=== PATIENT | female | born 1985 | race Hispanic/Latino ===

== ENCOUNTER 2017-07-14 00:17 | Inpatient (IN) | payer MEDICAID, OTHER ==
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
--- NOTE | 2017-07-14 01:46 | PCM.BM ---
<Des Davila - Last Filed: 07/14/17 01:41> Treatment Plan Problems - Problems identified on initial assessmt Depression Date Initiated: 07/14/17 Time Initiated: :30 Assessment reference: NA Status: Active Suicidal Ideation Date Initiated: 07/14/17 Time Initiated: :30 Assessment reference: NA Status: Active Alcohol Abuse Date Initiated: 07/14/17 Time Initiated: :30 Assessment reference: NA Status: Active Treatment assets and liabiliti Patient Assests: adapts well, cooperative, self-reliant, ADL independent, negotiates basic needs Patient Liabilities: live alone, physical pain, financial problems, poor support system, substance abuse - Milieu Protocol Maintain good personal hygiene: daily Encourage regular showers, daily Remind patient to perform daily oral care, daily Assist patient to perform ADL's Maintain personal safety: every shift Educate patient to report safety concerns to staff, every shift Monitor environment for contraband/sharps Medication safety: Monitor for expected outcome, potential side effects: every shift, Assess barriers to learning: every shift, Assess readiness for medication education: every shift <Kaye Lockwood - Last Filed: 07/15/17 10:58> - Diagnosis (1) Major depressive disorder, severe Status: Acute Interventions: 07/15/17 10:58 * Assess/adjust medications daily and /or as needed * See patient on an individual basis 7x/week to assess symptoms of depression * Monitor for side effects & effectiveness of medications * (2) Alcohol use disorder, severe, dependence Status: Acute Interventions: 07/15/17 10:58 * Assess 7x/week regarding severity of withdrawal * Educate regarding risks, benefits, side effects and alternatives of medications * Use Motivational Interviewing for abstinence * Use CBT for relapse prevention * Medication management for withdrawal symptoms * Encourage medication assisted treatment * <Birgit Fowler - Last Filed: 07/15/17 10:59> Family Contact Family involvement: Family/SO is involved Family contact: Patient declines to allow family contact at present - Goals for Treatment Patient goals for treatment: "I want to go to rehab." Discharge/Continuing Care - Education Needs Education Needs: Patient Medication, Patient Coping Skills, Patient Placement options, Patient Community resources - Discharge Discharge Criteria: Tolerates medication w/o severe side effects, No longer exhibiting s/s of withdrawal Discharge to:: Substance Abuse Rehab - Treatment Team Participation Discussed with Family/SO: No Was Patient/Family/SO present at Treatment Team Meeting: Yes
[2017-07-14] MEDS: Multiple Vitamins Tab PO SCH (09:49)
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
[2017-07-15] MEDS: Multiple Vitamins Tab PO SCH (09:47)
--- NOTE | 2017-07-15 10:09 | PCM.PYCHPN ---
Psychiatric Progress Note - Psychiatric Progress Note Patient seen today, length of contact: 16 min Patient Chief Complaint: I'm still feeling depressed Problems Identified/Issues Discussed: Patient seen and evaluated, chart reviewed and discussed with the nurse. Patient still reports depressed mood and feelings of hopelessness and helplessness. She remained isolated, confined and withdrawn. Patient still reports some withdrawal symptoms from drinking including nausea, headaches, and sweating. she denies any manic or psychotic symptoms. Patient is compliant with medications and denies any side effects. Symptoms are improving but need more time to stabilize. Support and psychoeducation given. Medication Change: Yes (Librium taper[employer] Zoloft) Medical Record Reviewed: Yes Mental Status Examination - Cognitive Function Orientation: Person, Place, Situation, Time Memory: Intact Attention: WNL Concentration: Poor Association: WNL Fund of Knowledge: Poor - Mood Mood: Depressed, Anxious - Affect Affect: Constricted, Depressed - Speech Speech: Soft - Formal Thought Process Formal Thought Process: No Impairment - Suicidal Ideation Suicidal Ideation: No - Homicidal Ideation Homicidal Ideation: No Goal/Treatment Plan - Goal/Treatment Plan Need for Continued Stay: Severe depression anxiety, Severe functional impairment Progress Toward Problem(s) and Goals/Treatment Plan: Major depressive disorder, recurrent, severe Alcohol use disorder- severe Alcohol withdrawal Sedative hypnotic anxiolytic use disorder- moderate Librium megha started Keppra 250mg PO BID Zoloft 100mg PO daily Vitamins Attend groups and activities Individual therapy Psychoeducation and support Encourage compliance with meds and after care Refer to outpatient program Teach healthy lifestyle methods, i.e. diet, exercise, meditation - Smoking Cessation Smoking Cessation Initiated: No
[2017-07-15] MEDS ORDERED: Pneumococcal 23-Valent Vaccine IM ONE (10:20)
[2017-07-15] MEDS ORDERED: Influenza Vaccine 60 mcg/0.5 mL SYR (4YR UP) IM ONE (10:30)
[2017-07-16] MEDS: Multiple Vitamins Tab PO SCH (09:33)
--- NOTE | 2017-07-16 18:57 | PCM.PYCHPN ---
Psychiatric Progress Note - Psychiatric Progress Note Patient seen today, length of contact: 15 minutes Patient Chief Complaint: I still feel depressed and anxious. I need my Adderall. Problems Identified/Issues Discussed: Patient seen, chart reviewed, case discussed with the staff. Issues related to illness and treatment were discussed with the patient. Reported compliant with treatment with no adverse affects. Reported feeling little better, less withdrawal symptoms but still feeling depression and anxiety. Patient reported taking Adderall 20 mg daily for ADHD, requesting to start. Aftercare discussed with the patient. Wants to go to a detention rehabilitation. At the time of evaluation, patient was awake alert oriented 3, had no delusions , no auditory or visual hallucinations, no suicidal ideations or homicidal ideations. Medical Problems: Seizure disorder Diagnostic Results: Reviewed DSM 5 Symptoms Update: Some improvement with treatment Medication Change: Yes (Started Ritalin 10 mg daily) Medical Record Reviewed: Yes Mental Status Examination - Cognitive Function Orientation: Person, Place, Situation, Time Memory: Intact Attention: WNL Concentration: WNL Association: WNL Fund of Knowledge: [facility] Decription of patient's judgement and insights: Fair - Mood Mood: Anxious - Affect Affect: Other (Appropriate) - Speech Speech: Soft - Formal Thought Process Formal Thought Process: No Impairment - Suicidal Ideation Suicidal Ideation: No - Homicidal Ideation Homicidal Ideation: No Goal/Treatment Plan - Goal/Treatment Plan Need for Continued Stay: Remain at risks for inpatient hospitalization, Discharge may exacerbated symptoms, Severe functional impairment Progress Toward Problem(s) and Goals/Treatment Plan: Patient education Supportive therapy Will start Ritalin 10 mg daily for ADHD. Hospital does not carry Adderall and patient does not has follow-up on medications. Patient wants to go to rehabilitation after discharge from the hospital. Estimated Date of D/C: 07/19/17 - Smoking Cessation Smoking Cessation Initiated: No
[2017-07-17] MEDS: Multiple Vitamins Tab PO SCH (09:25)
--- NOTE | 2017-07-17 13:36 | PCM.PYCHPN ---
Psychiatric Progress Note - Psychiatric Progress Note Patient seen today, length of contact: 15 minutes Patient Chief Complaint: I'm feeling much better after start of Ritalin. Can I get Ritalin twice a day. Problems Identified/Issues Discussed: Patient seen, chart reviewed, case discussed with the staff. Issues related to illness and treatment were discussed with the patient. Reported compliant with treatment with no adverse affects. Patient reported feeling better after start of Ritalin. Aftercare discussed with the patient. Wants to go to a halfway rehabilitation. At the time of evaluation, patient was awake alert oriented 3, had no delusions , no auditory or visual hallucinations, no suicidal ideations or homicidal ideations. Medical Problems: Seizure disorder Diagnostic Results: Reviewed DSM 5 Symptoms Update: Improving with treatment Medication Change: No Medical Record Reviewed: Yes Mental Status Examination - Cognitive Function Orientation: Person, Place, Situation, Time Memory: Intact Attention: WNL Concentration: WNL Association: WNL Fund of Knowledge: [facility] Decription of patient's judgement and insights: Fair - Mood Mood: Depressed (Less than before) - Affect Affect: Other (Appropriate) - Speech Speech: Appropriate - Formal Thought Process Formal Thought Process: No Impairment Psychotic Thoughts and Behaviors: None - Suicidal Ideation Suicidal Ideation: No - Homicidal Ideation Homicidal Ideation: No Goal/Treatment Plan - Goal/Treatment Plan Need for Continued Stay: Remain at risks for inpatient hospitalization, Discharge may exacerbated symptoms, Severe functional impairment Progress Toward Problem(s) and Goals/Treatment Plan: Patient education Supportive therapy Patient wants to go to rehabilitation after discharge from the hospital. Estimated Date of D/C: 07/19/17 - Smoking Cessation Smoking Cessation Initiated: No
[2017-07-18] MEDS: Multiple Vitamins Tab PO SCH (09:58)
--- NOTE | 2017-07-18 13:26 | PCM.PYCHPN ---
Psychiatric Progress Note - Psychiatric Progress Note Patient seen today, length of contact: 15 minutes Patient Chief Complaint: I'm still feeling depressed Problems Identified/Issues Discussed: Patient seen and evaluated, chart reviewed and discussed with the nurse. Patient still reports depressed mood and feelings of hopelessness and helplessness. She remained isolated, confined and withdrawn. Patient still reports some withdrawal symptoms from drinking including nausea, headaches, and sweating. she denies any manic or psychotic symptoms. Patient is compliant with medications and denies any side effects. Symptoms are improving but need more time to stabilize. Support and psychoeducation given. Medication Change: No Medical Record Reviewed: Yes Mental Status Examination - Cognitive Function Orientation: Person, Place, Situation, Time Memory: Intact Attention: WNL Concentration: WNL Association: WNL Fund of Knowledge: WN - Mood Mood: Depressed (Less than before) - Affect Affect: Other (Appropriate) - Speech Speech: Appropriate - Formal Thought Process Formal Thought Process: No Impairment - Suicidal Ideation Suicidal Ideation: No - Homicidal Ideation Homicidal Ideation: No Goal/Treatment Plan - Goal/Treatment Plan Need for Continued Stay: Remain at risks for inpatient hospitalization, Discharge may exacerbated symptoms, Severe functional impairment Progress Toward Problem(s) and Goals/Treatment Plan: Major depressive disorder, recurrent, severe Alcohol use disorder- severe Alcohol withdrawal Sedative hypnotic anxiolytic use disorder- moderate Librium megha started Keppra 250mg PO BID Zoloft 100mg PO daily Vitamins Attend groups and activities Individual therapy Psychoeducation and support Encourage compliance with meds and after care Refer to outpatient program Teach healthy lifestyle methods, i.e. diet, exercise, meditation Estimated Date of D/C: 07/19/17
[2017-07-19] MEDS: Multiple Vitamins Tab PO SCH (09:48)
--- NOTE | 2017-07-19 22:16 | PCM.PYCHPN ---
Psychiatric Progress Note - Psychiatric Progress Note Patient seen today, length of contact: 15 minutes Patient Chief Complaint: I'm feeling little better Problems Identified/Issues Discussed: Patient seen and evaluated, chart reviewed and discussed with the nurse. Patient reports some improvement in her mood but still appears depressed. She remained isolated, confined and withdrawn. Patient still reports some withdrawal symptoms from drinking including headaches, and sweating. she denies any manic or psychotic symptoms. She wants to go to the in pt rehab after discharge. Patient is compliant with medications and denies any side effects. Symptoms are improving but need more time to stabilize. Support and psychoeducation given. Medication Change: No Medical Record Reviewed: Yes Mental Status Examination - Cognitive Function Orientation: Person, Place, Situation, Time Memory: Intact Attention: WNL Concentration: Poor Association: WNL Fund of Knowledge: Poor - Mood Mood: Depressed (Less than before) - Affect Affect: Other (Appropriate) - Speech Speech: Appropriate - Formal Thought Process Formal Thought Process: No Impairment - Suicidal Ideation Suicidal Ideation: No - Homicidal Ideation Homicidal Ideation: No Goal/Treatment Plan - Goal/Treatment Plan Need for Continued Stay: Remain at risks for inpatient hospitalization, Discharge may exacerbated symptoms, Severe functional impairment Progress Toward Problem(s) and Goals/Treatment Plan: Major depressive disorder, recurrent, severe Alcohol use disorder- severe Alcohol withdrawal Sedative hypnotic anxiolytic use disorder- moderate Librium megha Keppra 250mg PO BID Zoloft 100mg PO daily Vitamins Attend groups and activities Individual therapy Psychoeducation and support Encourage compliance with meds and after care Refer to outpatient program Teach healthy lifestyle methods, i.e. diet, exercise, meditation Estimated Date of D/C: 07/19/17 - Smoking Cessation Smoking Cessation Initiated: No
[2017-07-20] MEDS: Multiple Vitamins Tab PO SCH (09:27)
--- NOTE | 2017-07-20 09:58 | PCM.BM ---
<Kiley Silverman - Last Filed: 07/20/17 15:11> Treatment Plan Review - Problem Depression Date Initiated: 07/20/17 Time Initiated: 15:10 Progress toward outcomes: improved Suicidal Ideation Date Initiated: 07/20/17 Time Initiated: 15:10 Progress toward outcomes: improved Alcohol Abuse Date Initiated: 07/20/17 Time Initiated: 15:10 Progress toward outcomes: improved <Birgit Fowler - Last Filed: 07/21/17 11:24> Treatment Plan Problems - Problems identified on initial assessmt Depression Date Initiated: 07/14/17 Time Initiated: 01:30 Assessment reference: NA Status: Active Suicidal Ideation Date Initiated: 07/14/17 Time Initiated: 30 Assessment reference: NA Status: Active Alcohol Abuse Date Initiated: 07/14/17 Time Initiated: 30 Assessment reference: NA Status: Active Treatment assets and liabiliti Patient Assests: adapts well, cooperative, self-reliant, ADL independent, negotiates basic needs Patient Liabilities: live alone, physical pain, financial problems, poor support system, substance abuse - Milieu Protocol Maintain good personal hygiene: daily Encourage regular showers, daily Remind patient to perform daily oral care, daily Assist patient to perform ADL's Maintain personal safety: every shift Educate patient to report safety concerns to staff, every shift Monitor environment for contraband/sharps Medication safety: Monitor for expected outcome, potential side effects: every shift, Assess barriers to learning: every shift, Assess readiness for medication education: every shift Milieu Narrative: Major depressive disorder, recurrent, severe Alcohol use disorder- severe Alcohol withdrawal Sedative hypnotic anxiolytic use disorder- moderate Librium megha started Keppra 250mg PO BID Zoloft 100mg PO daily Vitamins Attend groups and activities Individual therapy Psychoeducation and support Encourage compliance with meds and after care Refer to outpatient program Teach healthy lifestyle methods, i.e. diet, exercise, meditation Family Contact Family involvement: Family/SO is involved Family contact: Patient declines to allow family contact at present - Goals for Treatment Patient goals for treatment: "I want to go to rehab." Discharge/Continuing Care - Education Needs Education Needs: Patient Medication, Patient Coping Skills, Patient Placement options, Patient Community resources - Discharge Discharge Criteria: Tolerates medication w/o severe side effects, No longer exhibiting s/s of withdrawal Discharge to:: Substance Abuse Rehab - Treatment Team Participation Patient/Family/SO Statement: Major depressive disorder, recurrent, severe Alcohol use disorder- severe Alcohol withdrawal Sedative hypnotic anxiolytic use disorder- moderate Librium megha started Keppra 250mg PO BID Zoloft 100mg PO daily Vitamins Attend groups and activities Individual therapy Psychoeducation and support Encourage compliance with meds and after care Refer to outpatient program Teach healthy lifestyle methods, i.e. diet, exercise, meditation Discussed with Family/SO: No Was Patient/Family/SO present at Treatment Team Meeting: Yes Treatment Plan Review - Problem Depression Time Initiated: 01:30 Suicidal Ideation Time Initiated: 01:30 Alcohol Abuse Time Initiated: 01:30 - Discharge / Continuing Care Discharge to:: Substance Abuse Rehab Behavioral Health Services: Residential treatment Health Needs: Medications/Rx, Alcohol/Drug treatment
--- NOTE | 2017-07-20 23:33 | PCM.PYCHPN ---
Psychiatric Progress Note - Psychiatric Progress Note Patient seen today, length of contact: 15 minutes Patient Chief Complaint: I'm feeling little better Problems Identified/Issues Discussed: Patient seen and evaluated, chart reviewed and discussed with the nurse. Patient reports some improvement in her mood but still appears depressed. She started coming out of her room. She reports some improvement in the withdrawal symptoms but still reports headaches, and sweating. she denies auditory and visual hallucinations. She wants to go to the in-patient rehab after discharge. Patient is compliant with medications and denies any side effects. Symptoms are improving but need more time to stabilize. Support and psychoeducation given. Medication Change: No Medical Record Reviewed: Yes Mental Status Examination - Cognitive Function Orientation: Person, Place, Situation, Time Memory: Intact Attention: WNL Concentration: Poor Association: WNL Fund of Knowledge: Poor - Mood Mood: Depressed (Less than before) - Affect Affect: Other (Appropriate) - Speech Speech: Appropriate - Formal Thought Process Formal Thought Process: No Impairment - Suicidal Ideation Suicidal Ideation: No - Homicidal Ideation Homicidal Ideation: No Goal/Treatment Plan - Goal/Treatment Plan Need for Continued Stay: Remain at risks for inpatient hospitalization, Discharge may exacerbated symptoms, Severe functional impairment Progress Toward Problem(s) and Goals/Treatment Plan: Major depressive disorder, recurrent, severe Alcohol use disorder- severe Alcohol withdrawal Sedative hypnotic anxiolytic use disorder- moderate Librium megha Keppra 250mg PO BID Zoloft 100mg PO daily Vitamins Attend groups and activities Individual therapy Psychoeducation and support Encourage compliance with meds and after care Refer to outpatient program Teach healthy lifestyle methods, i.e. diet, exercise, meditation Estimated Date of D/C: 07/22/17 - Smoking Cessation Smoking Cessation Initiated: No
[2017-07-21] MEDS: Multiple Vitamins Tab PO SCH (09:39)
--- NOTE | 2017-07-21 11:11 | PCM.PYCHPN ---
Psychiatric Progress Note - Psychiatric Progress Note Patient seen today, length of contact: 15 minutes Patient Chief Complaint: feeling okay Problems Identified/Issues Discussed: Patient seen and evaluated, chart reviewed and discussed with the nurse. Patient reports some improvement in her mood but still appears depressed. She spent most of the day isolated but has been socializing more with peers. She reports some improvement with her withdrawal symptoms but still reports headaches, and sweating. Denies suicidal, homicidal ideation, auditory or visual hallucinations. She wants to go to the in-patient rehab after discharge. Patient is compliant with medications and denies any side effects. Symptoms are improving but need more time to stabilize. Support and psychoeducation given. Medication Change: No Medical Record Reviewed: Yes Mental Status Examination - Cognitive Function Orientation: Person, Place, Situation, Time Memory: Intact Attention: WNL Concentration: Poor Association: WNL Fund of Knowledge: Poor - Mood Mood: Depressed (Less than before) - Affect Affect: Other (Appropriate) - Speech Speech: Appropriate - Formal Thought Process Formal Thought Process: No Impairment - Suicidal Ideation Suicidal Ideation: No - Homicidal Ideation Homicidal Ideation: No Goal/Treatment Plan - Goal/Treatment Plan Need for Continued Stay: Remain at risks for inpatient hospitalization, Discharge may exacerbated symptoms, Severe functional impairment Progress Toward Problem(s) and Goals/Treatment Plan: Major depressive disorder, recurrent, severe -Zoloft 100mg PO daily -Attend groups and activities -Individual therapy -Psychoeducation and support -Encourage compliance with meds and after care -Refer to outpatient program -Teach healthy lifestyle methods, i.e. diet, exercise, meditation Sedative hypnotic anxiolytic use disorder- moderate Alcohol use disorder- severe Alcohol withdrawal -Librium taper (completed) -Vitamins, thiamine, folic acid daily Hx of Seizures -Keppra 250mg PO BID DW Minal Enriquez, DO PGY-1 Estimated Date of D/C: 07/22/17
[2017-07-21] MEDS: Benzocaine/Menthol (Cepacol) Lozenge MT PRN ×2 (13:16→20:24)
[2017-07-22] MEDS: Benzocaine/Menthol (Cepacol) Lozenge MT PRN (09:24)
[2017-07-22] MEDS: Multiple Vitamins Tab PO SCH (09:26)
--- NOTE | 2017-07-22 11:04 | PCM.PYCHPN ---
Psychiatric Progress Note - Psychiatric Progress Note Patient seen today, length of contact: 15 minutes Patient Chief Complaint: I'm feeling little better Problems Identified/Issues Discussed: Patient seen and evaluated, chart reviewed and discussed with the nurse. Patient reports improvement in her mood and reports improvement in her feelings of hopelessness and helplessness. She reports improvement in the withdrawal symptoms. She reports improvement in sleep and appetite, however sometimes she still reports of anxiety. She is calling different programs to get into the in-patient rehab after discharge. Patient is compliant with medications and denies any side effects. Symptoms are improving but need more time to stabilize. Support and psychoeducation given. Medication Change: No Medical Record Reviewed: Yes Mental Status Examination - Cognitive Function Orientation: Person, Place, Situation, Time Memory: Intact Attention: WNL Concentration: WNL Association: WNL Fund of Knowledge: Poor - Mood Mood: Anxious - Affect Affect: Constricted - Speech Speech: Appropriate - Formal Thought Process Formal Thought Process: No Impairment - Suicidal Ideation Suicidal Ideation: No - Homicidal Ideation Homicidal Ideation: No Goal/Treatment Plan - Goal/Treatment Plan Need for Continued Stay: Remain at risks for inpatient hospitalization, Discharge may exacerbated symptoms, Severe functional impairment Progress Toward Problem(s) and Goals/Treatment Plan: Major depressive disorder, recurrent, severe Alcohol use disorder- severe Alcohol withdrawal Sedative hypnotic anxiolytic use disorder- moderate d/c Librium megha Keppra 250mg PO BID Zoloft 100mg PO daily Trazodone 100 mg by mouth daily at bedtime Vitamins Attend groups and activities Individual therapy Psychoeducation and support Encourage compliance with meds and after care Refer to outpatient program Teach healthy lifestyle methods, i.e. diet, exercise, meditation Estimated Date of D/C: 07/25/17 - Smoking Cessation Smoking Cessation Initiated: No
--- NOTE | 2017-07-22 13:32 | RAD ---
HISTORY: Rehab COMPARISON: No prior. TECHNIQUE: Chest PA and lateral FINDINGS: LUNGS: No active pulmonary disease. PLEURA: No significant pleural effusion identified. No pneumothorax apparent. CARDIOVASCULAR: Normal. OSSEOUS STRUCTURES: No significant abnormalities. VISUALIZED UPPER ABDOMEN: Normal. OTHER FINDINGS: None. IMPRESSION: No active disease.
[2017-07-23] MEDS: Multiple Vitamins Tab PO SCH (09:02)
[2017-07-24] MEDS: Multiple Vitamins Tab PO SCH (09:20)
[2017-07-25] MEDS: Multiple Vitamins Tab PO SCH (09:29)
[2017-07-26 06:12] VITALS: BP 96/66; PULSE 101; RESP 20; TEMP 98.8; O2SAT 99
[2017-07-26] MEDS: Multiple Vitamins Tab PO SCH (09:39)
--- NOTE | 2017-07-26 11:07 | PCM.PYCHDC ---
Mental Status Examination - Mental Status Examination Orientation: Person, Place, Situation, Time Memory: Intact Mood: Neutral Affect: Constricted Speech: Soft Attention: WNL Concentration: WNL Association: WNL Fund of Knowledge: WNL Formal Thought Process: No Impairment Description of patient's judgement and insight: good, fair Psychotic Thoughts and Behaviors: denies any AVH Suicidal Ideation: No Current Homicidal Ideation?: No Discharge Summary - Discharge Note Consultations:: List each consultation separately and include: 1. Reason for request. 2. Findings. 3. Follow-up Summary of Hospital Course include:: 1. Description of specific treatment plan utilized for patients during their course of treatmen. 2. Summarize the time- course for resolution of acute symptoms and/or regressed behaviors. 3. Describe issues identified and worked on during hospitalization. 4. Describe medication utilized. 5. Describe medical problems identified and treated. 6. Reassessment of suicide risk - Diagnosis (1) Major depressive disorder, severe Current Visit: Yes Status: Acute (2) Alcohol use disorder, severe, dependence Current Visit: Yes Status: Acute - Final Diagnosis (DSM 5) Condition upon Discharge: STABLE DSM 5: Major depressive disorder, recurrent, severe Alcohol use disorder- severe Alcohol withdrawal Sedative hypnotic anxiolytic use disorder- moderate Disposition: HOME/ ROUTINE Follow-up Treatment Plan: Major depressive disorder, recurrent, severe Alcohol use disorder- severe Alcohol withdrawal Sedative hypnotic anxiolytic use disorder- moderate d/c Librium megha Keppra 250mg PO BID Zoloft 100mg PO daily Trazodone 100 mg by mouth daily at bedtime Vitamins Attend groups and activities Individual therapy Psychoeducation and support Encourage compliance with meds and after care Refer to outpatient program Teach healthy lifestyle methods, i.e. diet, exercise, meditation Prescriptions/Medication Reconciliation: Gabapentin [Neurontin] 100 mg PO BID #60 cap levETIRAcetam [Keppra] 500 mg PO BID #60 tab Sertraline [Zoloft] 100 mg PO DAILY #30 tab traZODone [Desyrel] 100 mg PO HS PRN #30 tab PRN Reason: Insomnia - Smoking Cessation Smoking Cessation Medication prescribed: No - Antipsychotic Medications Pt discharged on 2 or more routine antipsychotic medications: No
== END 2017-07-26 11:40 | disposition home or self-care (01) | DRG 430 ==
LOC: C.ER 00:17 → C.5E 00:37
PROVIDERS: ADMIT Psychiatry & Neurology Psychiatry; ATTEND Psychiatry & Neurology Psychiatry
PROC: GZ3ZZZZ Medication Management (ICD-10-PCS; principal; 2017-07-14)
PROC: GZHZZZZ Group Psychotherapy (ICD-10-PCS; 2017-07-14)
PROC: GZ56ZZZ Individual Psychotherapy, Supportive (ICD-10-PCS; 2017-07-14)
PROC: HZ2ZZZZ Detoxification Services for Substance Abuse Treatment (ICD-10-PCS; 2017-07-14)
PROC: HZ56ZZZ Individual Psychotherapy for Substance Abuse Treatment, Psychoeducation (ICD-10-PCS; 2017-07-14)
DX: F33.2 Major depressive disorder, recurrent severe without psychotic features (principal); F10.239 Alcohol dependence with withdrawal, unspecified; F13.10 Sedative, hypnotic or anxiolytic abuse, uncomplicated; F90.9 Attention-deficit hyperactivity disorder, unspecified type; F41.9 Anxiety disorder, unspecified; G40.409 Other generalized epilepsy and epileptic syndromes, not intractable, without status epilepticus; Z81.8 Family history of other mental and behavioral disorders; Z91.5 Personal history of self-harm; Z59.0 Homelessness